=== PATIENT | female | born 1950 | race Caucasian/White ===

== ENCOUNTER 2017-10-09 15:28 | Day surgery (SDC) | payer OTHER ==
[2017-10-09] MEDS ORDERED: LR 1,000 ML IV ONE (15:34)
[2017-10-09] MEDS ORDERED: LIDOCAINE 1% 2 ML INJ ONE (15:49)
--- NOTE | 2017-10-09 15:54 | PDGENHP ---
History & Physical Chief Complaint: Diarrhea, Dysphagia History of Present Illness: Chronic diarrhea. Dysphagia. On lovenox bridge for anti-coagulation Pertinent Past, Social, Family History: No FH colon cancer, celiac or thyroid disease. No ETOH or tobacco Relevant Physical Exam: NAD. CTA B/L. RRR without m/r/g. GI Soft. NABS. No TTP. Cardiorespiratory Assessment: ASA III. EGD. Colonoscopy with biopsy
[2017-10-09] MEDS ORDERED: PROPOFOL 200 MG/20 ML VIAL ONE (16:05)
[2017-10-09 16:09] VITALS: PULSE 95
--- NOTE | 2017-10-09 16:20 | GIREPORT ---
[facility] Surgical Services - Endoscopy Department Patient Name: Suyapa Decker Procedure Date: 10/09/2017 4:12 PM Patient Type: Outpatient Attending MD/ ER Physician: Vinny Floyd MD Procedure: Upper GI endoscopy Indications: Heartburn, Nausea with vomiting Providers: Vinny Floyd MD Medicines: Propofol per Anesthesia Complications: No immediate complications. Description of Procedure: After obtaining informed consent, the endoscope was passed under direct vision. Throughout the procedure, the patient's blood pressure, pulse, and oxygen saturations were monitored continuously. The Endoscope was intro duced through the mouth, and advanced to the second part of duodenum. The [facility] GI endoscopy was accomplished without difficulty. The patient tolerated th e procedure well. Findings: The lumen of the esophagus was moderately dilated. Abnormal motility was noted in the esophagus. The cricopharyngeus was normal. There is a decrease in motility of the esophageal body. The dis tone esophagus/lower esophageal sphincter is open. Normal peristalsis not no farhad. A large paraesophageal hernia was found. The stomach was normal. The examined duodenum was normal. Estimated Blood Loss: Estimated blood loss: none. Post Op Diagnosis: - Dilation in the entire esophagus. - Abnormal esophageal motility. - Large paraesophageal hernia. - Normal stomach. - Normal examined duodenum. - No specimens collected. Recommendation: - Use Prilosec (omeprazole) 40 mg PO BID. - Do not eat 4 hours prior to sleep - UGI series to evalute the para-esophageal hernia - Return to GI office as previously scheduled. - Thank you for allowing me to be involved in the care of your patient. Attending Participation: I personally performed the entire procedure without the assistance of a fellow, resident or surg ical assistant portfolio manager. Vinny Floyd MD Vinny Floyd MD 10/09/2017 4:20:28 PM This report has been signed electronicallyDavid MD [place] Number of Addenda: 0 Note Initiated On: 10/09/2017 4:12 PM [email or web address]
[2017-10-09] MEDS ORDERED: ALBUTEROL 3 ML DEYVIAL IH PRN (16:24)
[2017-10-09] MEDS ORDERED: LR 500 ML IV PRN (16:24)
[2017-10-09] MEDS ORDERED: ONDANSETRON 4 MG/2 ML VIAL IVP PRN (16:24)
[2017-10-09] MEDS ORDERED: NALOXONE HCL 0.4 MG/ML INJ IVP PRN (16:24)
[2017-10-09] MEDS ORDERED: DEXAMETHASONE 4 MG/ML VIAL IVP PRN (16:24)
--- NOTE | 2017-10-09 16:24 | PDANEPAE ---
ANE Past Medical History - Cardiovascular History Hx Hypertension: Yes Hx Arrhythmias: No Hx Coronary Artery / Peripheral Vascular Disease: No Hx CHF / Valvular Disease: No Cardiovascular History Comment: WEARS SUPPORT HOSE, HX CLOTS TERI LEGS, AND EDEMA LEGS. NO CP - Pulmonary History Hx COPD: No Hx Asthma/Reactive Airway Disease: No Hx Recent Upper Respiratory Infection: No Hx Oxygen in Use at Home: Yes Hx Sleep Apnea: Yes Pulmonary History Comment: SOME SOB W STAIRS. GARETT- CANT IVETTE CPAP. HAVE O2 AT HOME, DOESNT USE OFTEN. WILL USE IF ROMERO, RARE - Neurologic History Hx Cerebrovascular Accident: No Hx Seizures: No Hx Dementia: No - Endocrine History Hx Diabetes: No Endocrine History Comment: LOW THYROID - Renal History Hx Renal Disorders: Yes Renal History Comment: 3RD STAGE KIDNEY DISEASE. HX UTI. 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 MISSING TEETH 2 BOTTOM, 2 TOP. HX TERI BLOOD CLOTS LEGS- ON WARFARIN- WILL START LOVANOX BRIDGE 5-14. DRY MOUTH. TAKES IRON- ANEMIA, PT NOT SURE IF ANEMIC - Chronic Pain History Chronic Pain: Yes (R HIP) - Surgical History Prior Surgeries: TERI TKA '04, '05. SPINAL FUSION C4-7. POLA. HIATAL HERNIA REP. C SECTION. APPY. WISDOM TEETH ANE Review of Systems Review of Systems: ANE Patient History - Allergies Allergies/Adverse Reactions: codeine Allergy (Severe, Verified 02/16/14 13:39) Rash lithium [[place]] Allergy (Unknown, Verified 02/16/14 13:39) Unknown Sulfa (Sulfonamide Antibiotics) Allergy (Unknown, Verified 02/16/14 13:39) Unknown - Home Medications Home Medications: Levothyroxine [Synthroid 75 mcg (*)] 75 mcg PO DAILY06 02/16/14 [Last Taken ] [place]-3 Fatty Acids [Fish Oil 1000 mg (*)] 1,000 mg PO DAILY 02/16/14 [Last Taken 3 Days Ago ~10/06/17] Omeprazole [Prilosec] 40 mg PO DAILY 02/16/14 [Last Taken 10/08/17] Ferrous Sulfate [Ferrous Sulf 325 MG (*)] 325 mg PO DAILY 07/27/14 [Last Taken 1 Week Ago ~10/02/17] Coumadin 5MG (*) 10/09/17 [Last Taken 10/02/17] Doxycycline Hyclate 10/09/17 [Last Taken 10/08/17] GABAPENTIN 10/09/17 [Last Taken 10/08/17] Lovenox 80 MG (*) BID 10/09/17 [Last Taken 10/08/17] Quinine Sulfate 10/09/17 [Last Taken 10/08/17] - NPO status NPO Since - Liquids (Date): 10/09/17 NPO Since - Liquids (Time): 13:00 NPO Since - Solids (Date): 10/08/17 NPO Since - Solids (Time): 12:00 - Smoking Hx Smoking Status: Former smoker - Family Anes Hx Family Hx Anesthesia Complications: NONE ANE Labs/Vital Signs - Vital Signs Blood Pressure: 137/89 Heart Rate: 95 Respiratory Rate: 18 O2 Sat (%): 92 Height: 162.56 cm Weight: 90.718 kg ANE Physical Exam - Airway Neck exam: FROM Mallampati Score: Class 2 Mouth exam: dentures - Pulmonary Pulmonary: no respiratory distress, no rales or rhonchi, clear to auscultation, reduced air movement - Cardiovascular Cardiovascular: regular rate and rhythym, no murmur, rub, or gallop - ASA Status ASA Status: IV ANE Anesthesia Plan Anesthesia Plan: MAC
--- NOTE | 2017-10-09 16:43 | GIREPORT ---
[facility] Surgical Services - Endoscopy Department Patient Name: Suyapa Decker Procedure Date: 10/09/2017 3:57 PM Patient Type: Outpatient Attending / ER Physician: Vinny Floyd MD Procedure: Colonoscopy Indications: Chronic diarrhea Providers: Vinny Floyd MD Medicines: Propofol per Anesthesia Complications: No immediate complications. Description of Procedure: After obtaining informed consent, the scope was passed under direct vis ion. Throughout the procedure, the patient's blood pressure, pulse, and oxyg en saturations were monitored continuously. The Colonoscope with irrigatio n channel was introduced through the anus and advanced to the cecum, identified by appendiceal orifice and ileocecal valve. The colonoscopy was performed without difficulty. The patient tolerated the procedure well. The quality of the bowel preparation was excellent. The ileocecal valve, appendiceal orifice, and rectum were photographed. Findings: The perianal and digital rectal examinations were normal. Pertinent negatives include normal sphincter tone and no palpable rectal lesions. The area from rectum to cecum appeared normal. Biopsies for histology w ere taken with a cold forceps from the right colon and left colon for evalu ation of microscopic colitis. Multiple small and large-mouthed diverticula were found in the sigmoid colon. Estimated Blood Loss: Estimated blood loss: none. Post Op Diagnosis: - The rectum to cecum is normal. Biopsied. - Diverticulosis in the sigmoid colon. - No endoscopic cause for diarrhea. Recommendation: - Await pathology results. - Repeat colonoscopy in 10 years for screening purposes. - Return to GI office as previously scheduled. - Resume Coumadin (warfarin) today and Lovenox (enoxaparin) today at pr ior doses. Refer to managing physician for further adjustment of therapy. - Resume previous diet. - Continue present medications. - Patient has a contact number available for emergencies. The signs and symptoms of potential delayed complications were discussed with the pat ient. Return to normal activities tomorrow. Written discharge instructions we re provided to the patient. - Thank you for allowing me to be involved in the care of your patient. Attending Participation: I personally performed the entire procedure without the assistance of a fellow, resident or surg ical surgery assistant. Vinny Floyd MD Vinny Floyd MD 10/09/2017 4:42:27 PM This report has been signed electronicallyDavid MD [place] Number of Addenda: 0 Note Initiated On: 10/09/2017 3:57 PM Total Procedure Duration Time 0 hours 15 minutes 14 seconds [email or web address]
[2017-10-09 17:09] VITALS: TEMP 97.9
[2017-10-09 17:31] VITALS: RESP 20
[2017-10-09 17:55] VITALS: O2SAT 92
[2017-10-09 18:01] VITALS: BP 164/105
--- NOTE | 2017-10-09 18:03 | POSTANESTH ---
Post Anesthetic Evaluation Cardiovascular Status: Normal, Stable, Similar to Pre-Op Cond Respiratory Status: Normal, Stable, Similar to Pre-op Cond. Level of Consciousness/Mental Status: Can Participate in Eval Pain Control: Adequate, Prn Tx Ordered Nausea/Vomiting Control: Adequate, Prn Tx Ordered Complications Possibly Related to Anesthesia: None Noted
== END 2017-10-09 18:42 | disposition home or self-care (01) ==
LOC: FSGY 15:28
PROVIDERS: ATTEND Internal Medicine Gastroenterology
DX: R19.7 Diarrhea, unspecified (principal); R13.10 Dysphagia, unspecified; K22.4 Dyskinesia of esophagus; K57.30 Diverticulosis of large intestine without perforation or abscess without bleeding; K44.9 Diaphragmatic hernia without obstruction or gangrene; K21.9 Gastro-esophageal reflux disease without esophagitis; D68.51 Activated protein C resistance; M32.9 Systemic lupus erythematosus, unspecified; I12.9 Hypertensive chronic kidney disease with stage 1 through stage 4 chronic kidney disease, or unspecified chronic kidney disease; G47.33 Obstructive sleep apnea (adult) (pediatric); N18.3 Chronic kidney disease, stage 3 (moderate); Z87.440 Personal history of urinary (tract) infections; Z88.2 Allergy status to sulfonamides
CPT/HCPCS: J2704